=== PATIENT | male | born 1965 | race Hispanic/Latino ===

== ENCOUNTER 2018-07-24 08:58 | Day surgery (SDC) | payer BC ==
[2018-07-24] VITALS (11 sets, daily range): BP systolic 81–126; BP diastolic 46–87
[~2018-07-24] VITALS: Ht 167.6 cm; Wt 75.3 kg
[2018-07-24] MEDS ORDERED: IOHEXOL-350 50ML VIAL IV ONE (10:43)
[2018-07-24] MEDS ORDERED: SUCR1TAB2 PO (10:53)
[2018-07-24] MEDS ORDERED: CREON12 PO (10:53)
[2018-07-24] MEDS ORDERED: PANT40TA25 PO (10:53)
[2018-07-24] MEDS ORDERED: METF-444 PO (10:53)
[2018-07-24] MEDS ORDERED: PROPOFOL 1000 MG/100 ML 100 ML IV ONE (11:08)
[2018-07-24] MEDS ORDERED: SODIUM CHLORIDE 0.9% 1000ML 1,000 ML IV ONE (11:13)
[2018-07-24] MEDS ORDERED: INDOMETHACIN 50 MG SUPP.RECT RC SCH (11:15)
== END 2018-07-24 13:55 | disposition home or self-care (01) ==
LOC: ENDO 08:58
PROVIDERS: ATTEND Internal Medicine
DX: K85.90 Acute pancreatitis without necrosis or infection, unspecified (principal); E11.9 Type 2 diabetes mellitus without complications; Z79.84 Long term (current) use of oral hypoglycemic drugs; Z79.899 Other long term (current) drug therapy
CPT/HCPCS: 43260; 82948 ×2; A4606; C1769; J2704; J7030; Q9967; 74330

== ENCOUNTER 2018-07-31 08:40 | Day surgery (SDC) | payer BC ==
[2018-07-31] VITALS (12 sets, daily range): BP systolic 91–107; BP diastolic 54–71
[~2018-07-31] VITALS: Ht 172.7 cm; Wt 75.5 kg
[~2018-07-31 08:40] MED LIST: CREON12 PO; METF-444 PO; PANT40TA25 PO; SUCR1TAB2 PO
[2018-07-31] MEDS ORDERED: IOHEXOL-350 50ML VIAL IV ONE (11:01)
[2018-07-31] MEDS ORDERED: METF-446 PO (11:05)
[2018-07-31] MEDS ORDERED: SODIUM CHLORIDE 0.9% 1000ML 1,000 ML IV ONE (11:07)
[2018-07-31] MEDS ORDERED: MIDAZOLAM HCL 1 MG/ML 2ML VIAL ONE (11:31)
[2018-07-31] MEDS ORDERED: FENTANYL CITRATE PF 50 MCG/1 ML 2ML VIAL ONE ×2 (11:32→12:15)
[2018-07-31] MEDS ORDERED: GLUCAGON 1MG KIT 1 MG ML ONE ×2 (12:18→12:19)
[2018-07-31] MEDS ORDERED: ROCURONIUM 10MG/1ML SYR 10 MG/ML ML ONE (12:27)
[2018-07-31] MEDS ORDERED: GLYCOPYRROLATE 1 MG/5 ML SYRINGE ONE (12:35)
[2018-07-31] MEDS ORDERED: NEOSTIGMINE 5MG/5ML SYR IV ONE (12:35)
[2018-07-31] MEDS ORDERED: INDOMETHACIN 50 MG SUPP.RECT RC ONE (13:00)
== END 2018-07-31 14:05 | disposition home or self-care (01) ==
LOC: DAH 08:40
PROVIDERS: ATTEND Internal Medicine
DX: K83.8 Other specified diseases of biliary tract (principal); K86.1 Other chronic pancreatitis; K86.89 Other specified diseases of pancreas; Z79.84 Long term (current) use of oral hypoglycemic drugs; E11.9 Type 2 diabetes mellitus without complications; Z79.899 Other long term (current) drug therapy; Z98.890 Other specified postprocedural states; Z90.49 Acquired absence of other specified parts of digestive tract
CPT/HCPCS: 43274; 74328; 82948 ×2; A4606; C1769; C1773; C2625; J1610 ×2; J2250; J2710; J3010 ×2; J3490; J7030; Q9967; 74330

== ENCOUNTER 2019-02-15 10:05 | Day surgery (SDC) | payer BC ==
[2019-02-15] VITALS (17 sets, daily range): BP systolic 102–121; BP diastolic 63–80
[~2019-02-15] VITALS: Ht 167.6 cm; Wt 74.8 kg
[~2019-02-15 10:05] MED LIST changes: +METF-446 PO; +SODIUM CHLORIDE 0.9% 1000ML 1,000 ML IV ONE
[2019-02-15] MEDS ORDERED: METF-444 PO (10:47)
[2019-02-15] MEDS ORDERED: MIDAZOLAM HCL 1 MG/ML 2ML VIAL ONE (10:51)
[2019-02-15] MEDS ORDERED: FENTANYL CITRATE PF 50 MCG/1 ML 2ML VIAL ONE (10:51)
[2019-02-15] MEDS ORDERED: SUCCINYLCHOLINE CHLORIDE 20 MG/ML 10 ML VIAL ONE (10:54)
[2019-02-15] MEDS ORDERED: ROCURONIUM 10MG/1ML SYR 10 MG/ML ML ONE (10:57)
[2019-02-15] MEDS ORDERED: IOHEXOL-350 50ML VIAL IV ONE (11:02)
[2019-02-15] MEDS ORDERED: INDOMETHACIN 50 MG SUPP.RECT RC SCH (11:15)
== END 2019-02-15 13:05 | disposition home or self-care (01) ==
LOC: ENDO 10:05 → DAH 10:05 → ENDO 13:05
PROVIDERS: ATTEND Internal Medicine
DX: K86.89 Other specified diseases of pancreas (principal); Z98.890 Other specified postprocedural states; E11.9 Type 2 diabetes mellitus without complications; Z79.899 Other long term (current) drug therapy; Z79.84 Long term (current) use of oral hypoglycemic drugs
CPT/HCPCS: 43260; 74330; 82948 ×3; A4606; C1769; J0330; J2250; J3010; J7030; Q9967